=== PATIENT | male | born 1970 | race American Indian/Alaskan Native ===

== ENCOUNTER 2019-06-07 02:48 | Emergency (ER) | payer BC ==
[2019-06-07] MEDS ORDERED: IBUPROFEN PO ONE (03:02)
--- NOTE | 2019-06-07 03:03 | Emergency Department Report ---
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 NO CP. NO SOB. NO OTHER INJURY. 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 ED Past Medical Hx - Past Medical History Previous Medical History?: No - Surgical History Past Surgical History?: Yes Additional Surgical History: sinus surgery - Family History Family history: no significant - Social History Smoking Status: Current Every Day Smoker Substance Use Type: Alcohol ED Review of Systems ROS: Stated complaint: LT SHOULDER PAIN Other details as noted in HPI Comment: All other systems reviewed and negative Physical Exam - Physical Exam Physical Exam: alert and oriented full rom shoulders s1s2 lungs cta abd snt ED Medical Decision Making - Radiology Data Radiology results: report reviewed, image reviewed - Medical Decision Making medicated for pain xray NEG FULL ROM AND NEUROVASC INTACT dc home with dc plan of care and follow up - Differential Diagnosis ro ac sep/fx Critical care attestation.: If time is entered above; I have spent that time in minutes in the direct care of this critically ill patient, excluding procedure time. ED Disposition Clinical Impression: Shoulder pain, left Disposition: DC-01 TO HOME OR SELFCARE Is pt being admited?: No Does the pt Need Aspirin: No Condition: Stable Instructions: Shoulder Sprain (ED) Additional Instructions: ice shoulder motrin or tylenol for pain if pain persists see ortho MD for further evaluation referral below Referrals: STEPHANY VELÁZQUEZ MD [Staff Physician] - 3-5 Days Time of Disposition: 03:14
[2019-06-07] MEDS ORDERED: DELTASONE PO ONE (03:16)
--- NOTE | 2019-06-07 03:28 | XRay Report ---
LEFT SHOULDER 3 VIEWS INDICATION / CLINICAL INFORMATION: Pain in left shoulder for 2 days. Possible injury while recently lifting a heavy object. COMPARISON: None available. FINDINGS: BONES and JOINT(S): No acute fracture or subluxation. No significant arthritis. SOFT TISSUES: No significant abnormality. ADDITIONAL FINDINGS: None. IMPRESSION: No acute findings. Signer Name: Roger Benitez MD Signed: 06/07/2019 3:24 AM Workstation Name: [email or web address]
[2019-06-07 03:59] VITALS: BP 116/85
== END 2019-06-07 03:57 | disposition home or self-care (01) ==
LOC: ED 02:48
DX: M25.512 Pain in left shoulder (principal); F17.200 Nicotine dependence, unspecified, uncomplicated; F10.10 Alcohol abuse, uncomplicated; Z98.890 Other specified postprocedural states; X50.0XXA Overexertion from strenuous movement or load, initial encounter; Y93.89 Activity, other specified; Y92.488 Other paved roadways as the place of occurrence of the external cause; Y99.0 Civilian activity done for income or pay
CPT/HCPCS: 73030; 99283; J7512

== ENCOUNTER 2020-05-02 11:39 | Outpatient (CLI) | payer BC | END 2020-05-02 11:40 | disposition home or self-care (01) | LOC: LAB 11:39 | PROVIDERS: ATTEND Orthopaedic Surgery | DX: M10.9 Gout, unspecified (principal) | CPT/HCPCS: 36415; 84550 ==